=== PATIENT | male | born 1970 | race American Indian/Alaskan Native ===

== ENCOUNTER 2019-07-26 11:02 | Emergency (ER) | payer OTHER ==
[2019-07-26] MEDS ORDERED: DEXTROSE 50% IN WATER (25GM) 50 ML SYRINGE IV ONE (11:44)
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
[2019-07-26] MEDS ORDERED: TETANUS,DIPH,PERTUSS(ACELL) VACCINE 0.5 ML SYRINGE IM ONE (11:50)
--- NOTE | 2019-07-26 12:01 | XRay Report ---
CHEST 1 VIEW 07/26/2019 11:39 AM INDICATION / CLINICAL INFORMATION: syncope. COMPARISON: None available. FINDINGS: SUPPORT DEVICES: None. HEART / MEDIASTINUM: No significant abnormality. LUNGS / PLEURA: No significant pulmonary or pleural abnormality. No pneumothorax. ADDITIONAL FINDINGS: No significant additional findings. IMPRESSION: 1. No acute findings. Signer Name: Rangel Lopez MD Signed: 07/26/2019 11:57 AM Workstation Name: [id number]
[2019-07-26 12:24] LABS: Hematocrit 41.8 % (35.5-45.6); Mean Corpuscular HGB Conc 33 % (32-34); Mean Corpuscular Volume 95 fl (84-94); Platelet Count 236 K/mm3 (140-440); Red Blood Count 4.39 M/mm3 (3.65-5.03); Red Cell Distribution Width 12.9 % (13.2-15.2)
[2019-07-26 12:27] LABS: BUN/Creatinine Ratio 13; Blood Urea Nitrogen 10 mg/dL (9-20); Calcium 8.7 mg/dL (8.4-10.2); Hemolysis Index 22
[2019-07-26 15:24] VITALS: BP 118/67
== END 2019-07-26 15:41 | disposition home or self-care (01) ==
LOC: ED 11:02
DX: S50.311A Abrasion of right elbow, initial encounter (principal); E11.649 Type 2 diabetes mellitus with hypoglycemia without coma; R55 Syncope and collapse; M25.521 Pain in right elbow; Z91.018 Allergy to other foods; Z79.4 Long term (current) use of insulin; Z79.84 Long term (current) use of oral hypoglycemic drugs; W01.198A Fall on same level from slipping, tripping and stumbling with subsequent striking against other object, initial encounter; Y93.89 Activity, other specified; Y92.89 Other specified places as the place of occurrence of the external cause; Y99.8 Other external cause status
CPT/HCPCS: 36415; 71045; 80048; 82962; 84484; 85027; 90715; 93005; 93010; 99285

== ENCOUNTER 2019-11-13 17:20 | Emergency (ER) | payer OTHER ==
--- NOTE | 2019-11-13 18:11 | Emergency Department Report ---
Blank Doc - Documentation Documentation: 49-year-old male that presents with nausea, body aches, and uncontrolled DM. This initial assessment/diagnostic orders/clinical plan/treatment(s) is/are subject to change based on patient's health status, clinical progression and re- assessment by fellow clinical providers in the ED. Further treatment and workup at subsequent clinical providers discretion. Patient/guardians urged not to elope from the ED as their condition may be serious if not clinically assessed and managed. Initial orders include: 1- Patient sent to MAIN ED for further evaluation and treatment 2- labs 3- UA
[2019-11-13 18:30] LABS: Mean Corpuscular HGB Conc 31 % (32-34); Mean Corpuscular Volume 101 fl (84-94); Platelet Count 359 K/mm3 (140-440); Red Blood Count 4.62 M/mm3 (3.65-5.03); Red Cell Distribution Width 13.4 % (13.2-15.2)
[2019-11-13 18:34] LABS: Alanine Aminotransferase 22 units/L (7-56); Albumin 4.7 g/dL (3.9-5); BUN/Creatinine Ratio 25; Blood Urea Nitrogen 25 mg/dL (9-20); Calcium 10.3 mg/dL (8.4-10.2); Hematocrit 46.7 % (35.5-45.6); Hemoglobin 14.5 gm/dl (11.8-15.2); Hemolysis Index 47
[2019-11-13 20:05] VITALS: BP 109/57
[2019-11-13] MEDS ORDERED: SODIUM CHLORIDE 0.9% 1000 ML 3,000 ML IV ONE (21:24)
[2019-11-13] MEDS ORDERED: SODIUM BICARB 8.4% 50 MEQ/50 ML SYRINGE IV ONE (21:39)
[2019-11-13] MEDS ORDERED: POTASSIUM CHLORIDE 20 MEQ 20 MEQ/100 ML BAG IV SCH (22:00)
[2019-11-13] MEDS ORDERED: POTASSIUM CHLORIDE 20 MEQ 20 MEQ/100 ML BAG IV PRN (22:00)
[2019-11-13] MEDS ORDERED: INSULIN REGULAR, HUMAN 100 UNITS in SODIUM CHLORIDE 0.9% 99 ML IV SCH (22:00)
[2019-11-13 22:11] LABS: BUN/Creatinine Ratio 20; Blood Urea Nitrogen 28 mg/dL (9-20); Calcium 10.5 mg/dL (8.4-10.2); Hemolysis Index 37
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
[2019-11-13] MEDS ORDERED: SODIUM CHLORIDE 0.9% 1000 ML 1,000 ML IV SCH (22:23)
[2019-11-13] MEDS ORDERED: ONDANSETRON 4 MG/2 ML INJ IV PRN (22:29)
[2019-11-13] MEDS ORDERED: ACETAMINOPHEN 325 MG TAB PO PRN (22:29)
[2019-11-13] MEDS ORDERED: oxyCODONE /ACETAMINOPHEN 5-325MG TAB PO PRN (22:29)
--- NOTE | 2019-11-13 22:31 | History and Physical Report ---
Medications and Allergies Allergies Allergy/AdvReac Type Severity Reaction Status Date / Time banana Allergy Anaphylaxis Verified 04/23/15 13:43 chocolate flavor Allergy Hives Verified 04/23/15 13:43 dextrose Allergy Hives Verified 04/23/15 13:43 Home Medications Medication Instructions Recorded Confirmed Last Taken Type Insulin Aspart Prot/Aspart(Nf) 40 units SQ TIDAC 04/23/15 04/23/15 04/23/15 History [NovoLOG Mix 70/30 VIAL] Insulin Glargine,Hum.rec.anlog 65 units SQ BID 04/23/15 04/23/15 04/23/15 History [Lantus Solostar] metFORMIN [Glucophage] 500 mg PO BID 04/23/15 04/23/15 04/23/15 History Active Meds: Active Medications Acetaminophen (Tylenol) 650 mg PO Q4H PRN PRN Reason: Pain MILD(1-3)/Fever >100.5/KAP[place]AN Enoxaparin Sodium (Enoxaparin) 40 mg SUB-Q QDAY [facility] Sodium Chloride (Nacl 0.9% 1000 Ml) 3,000 mls @ 999 mls/hr IV BOLUS ONE Stop: 11/14/19 00:24 Last Admin: 11/13/19 22:10 Dose: 999 mls/hr Documented by: Insulin Human Regular 100 (units/ Sodium Chloride) 100 mls @ 1 mls/hr IV TITR ALFREDO; Protocol Potassium Chloride (Kcl 20meq/100ml) 20 meq in 100 mls @ 100 mls/hr IV Q1H PRN PRN Reason: SEE KCL PARAMETERS Sodium Chloride (Nacl 0.9% 1000 Ml) 1,000 mls @ 999 mls/hr IV Q1H ALFREDO Stop: 11/14/19 00:22 Ondansetron HCl (Zofran) 4 mg IV Q4H PRN PRN Reason: Nausea And Vomiting Sodium Chloride (Sodium Chloride Flush Syringe 10 Ml) 10 ml IV BID [facility] Exam - Constitutional Vitals: Temp Pulse Resp BP Pulse Ox 97.9 F 101 H 17 109/57 100 11/13/19 20:05 11/13/19 20:00 11/13/19 20:00 11/13/19 20:00 11/13/19 20:00 Results - Labs CBC & Chem 7: 11/13/19 18:10 11/13/19 21:47 Labs: Abnormal lab results 11/13/19 11/13/19 11/13/19 Range/Units 17:35 18:10 18:10 Hct 46.7 H (35.5-45.6) % MCV 101 H (84-94) fl MCHC 31 L (32-34) % VBG pH (7.320-7.420) Sodium (137-145) mmol/L Potassium 6.0 H (3.6-5.0) mmol/L Chloride 94.0 L (98-107) mmol/L Carbon Dioxide 9 L* (22-30) mmol/L BUN 25 H (9-20) mg/dL Glucose 502 H* (75-100) mg/dL POC Glucose 457 H (70-105) Calcium 10.3 H (8.4-10.2) mg/dL Phosphorus (2.5-4.5) mg/dL Magnesium (1.7-2.3) mg/dL 11/13/19 11/13/19 11/13/19 Range/Units 18:10 21:47 21:47 Hct (35.5-45.6) % MCV (84-94) fl MCHC (32-34) % VBG pH 7.241 L (7.320-7.420) Sodium 136 L (137-145) mmol/L Potassium 6.4 H* (3.6-5.0) mmol/L Chloride 90.3 L (98-107) mmol/L Carbon Dioxide 10 L (22-30) mmol/L BUN 28 H (9-20) mg/dL Glucose 551 H* (75-100) mg/dL POC Glucose (70-105) Calcium 10.5 H (8.4-10.2) mg/dL Phosphorus 6.70 H (2.5-4.5) mg/dL Magnesium 2.50 H (1.7-2.3) mg/dL
[2019-11-14] MEDS ORDERED: ENOXAPARIN 40 MG/0.4 ML INJ SUB-Q SCH (10:00)
== END 2019-11-13 22:55 | disposition left against medical advice (07) ==
LOC: ED 17:20 → UNDOADMIN 22:22 → CC1 22:22 → UNDODISIN 22:55
DX: E10.10 Type 1 diabetes mellitus with ketoacidosis without coma (principal); Z79.4 Long term (current) use of insulin; Z79.899 Other long term (current) drug therapy; Z91.018 Allergy to other foods; Z88.8 Allergy status to other drugs, medicaments and biological substances
CPT/HCPCS: 36415; 80048; 80053; 82805; 82962; 83735; 84100; 85027; 99283; J7030; G0378; J1815; J3480